=== PATIENT | female | born 1995 | race Two or more races ===

== ENCOUNTER 2022-04-13 15:14 | Outpatient (CLI) | payer SELFPAY | END 2022-04-13 16:43 | disposition home or self-care (01) | LOC: OB 15:14 → UNDODISOB 16:43 → OB 16:43 | PROVIDERS: ATTEND Obstetrics & Gynecology | DX: O36.60X1 Maternal care for excessive fetal growth, unspecified trimester, fetus 1 (principal); Z3A.00 Weeks of gestation of pregnancy not specified | CPT/HCPCS: 76818 ==

== ENCOUNTER 2022-04-24 10:14 | Observation (INO) | payer MEDICAID ==
[~2022-04-24] VITALS: Ht 169 cm; Wt 127.0 kg
== END 2022-04-24 14:21 | disposition home or self-care (01) ==
LOC: LDRP 10:14
PROVIDERS: ADMIT Obstetrics & Gynecology; ATTEND Obstetrics & Gynecology
DX: O62.9 Abnormality of forces of labor, unspecified (principal); O36.8330 Maternal care for abnormalities of the fetal heart rate or rhythm, third trimester, not applicable or unspecified; Z3A.39 39 weeks gestation of pregnancy
CPT/HCPCS: 59025; 76818; 81002; 94760; G0378

== ENCOUNTER 2022-04-26 04:13 | Inpatient (IN) | payer MEDICAID, OTHER ==
[2022-04-24 12:07] LABS: Alcohol, Urine < 3.0 mg/dL (0-10); Amphetamine Screen, Urine NEGATIVE (NEGATIVE); Barbiturate Scree,Urine NEGATIVE (NEGATIVE); Benzodiazephine Screen, Urine NEGATIVE (NEGATIVE); Cannabinoid Screen, Urine NEGATIVE (NEGATIVE); Cocaine Screen, Urine NEGATIVE (NEGATIVE); Opiate Scree,Urine NEGATIVE (NEGATIVE); Phencyclidine Screen, Urine NEGATIVE (NEGATIVE)
[2022-04-24 12:13] LABS: Basophils # (auto) 0 10 ^3/uL (0-0.2); Basophils % (auto) 0.4 % (0.0-2.0); Eosinophils # (auto) 0.1 10 ^3/uL (0-0.8); Eosinophils % (auto) 0.7 % (0.0-7.0); Hematocrit 35.6 % (36.0-46.0); Hemoglobin 11.9 g/dL (12.2-16.2); Lymphocytes # (auto) 1.9 10 ^3/uL (0.4-5.4); Lymphocytes % (auto) 24.2 % (10.0-50.0); Mean Corpuscular Hemoglobin 28.7 pg (28.0-32.0); Mean Corpuscular Hgb Conc. 33.4 g/dL (32.0-36.0); Mean Corpuscular Volume 85.7 fL (80.0-100.0); Monocytes # (auto) 0.4 10 ^3/uL (0-1.3); Monocytes % (auto) 5.6 % (0.0-12.0); Neutrophils # (auto) 5.5 10 ^3/uL (1.6-8.6); Neutrophils % (auto) 69.1 % (37.0-80.0); Nucleated Red Blood Cells % 0.1 %; Red Blood Cells 4.15 10^6/uL (4.0-5.20); White Blood Cell 7.9 10^3/uL (4.4-10.8)
[2022-04-24 12:27] LABS: INR 0.88 (0.9-1.15); Partial Thromboplastin Time 27.9 sec (24.6-33.4)
[2022-04-24 12:31] LABS: Albumin 2.3 g/dL (3.4-5.0); Calcium 8.3 mg/dL (8.5-10.1); Potassium 3.7 mmol/L (3.5-5.1)
[2022-04-24 12:35] LABS: BUN/Creatinine Ratio 9.6; Bilirubin, Total 0.3 mg/dL (0.2-1.0); Total Protein 6.6 g/dL (6.4-8.2)
[2022-04-24 13:19] LABS: Urine Bacteria FEW /hpf (None Seen); Urine Blood Negative /uL (Negative); Urine Mucus FEW (None Seen); Urine Specific Gravity 1.015 (1.001-1.035); Urine WBC 20 /hpf (0 - 5)
[2022-04-26] VITALS (10 sets, daily range): BP systolic 124–139; BP diastolic 72–91
[~2022-04-26] VITALS: Ht 169 cm; Wt 94.8 kg
[2022-04-26] MEDS ORDERED: ceFAZolin 1GM/50ML 50 ML IV ONE (04:30)
[2022-04-26] MEDS ORDERED: SODIUM CITR/CITRIC ACID ORAL SOLN 30 ML PO ONE (04:30)
[2022-04-26] MEDS ORDERED: LACTATED RINGER'S 1,000 ML IV ONE (04:30)
[2022-04-26] MEDS ORDERED: METOCLOPRAMIDE HCL 5MG/ml INJ 2ml VIAL IV ONE (04:30)
[2022-04-26] MEDS ORDERED: PREN-96 PO (05:02)
[2022-04-26] MEDS: LACTATED RINGER'S 1,000 ML IV SCH ×3 (05:56→22:15)
[2022-04-26] MEDS ORDERED: TETRACAINE 1% INJ 2 ML VIAL IJ ONE (07:02)
[2022-04-26] MEDS ORDERED: LACT. RINGERS/OXYTOCIN 20UNITS 1,000 ML IV ONE (07:15)
[2022-04-26] MEDS ORDERED: GUM (CHEWING) 1 GUM CHEW CHEW ONE (07:15)
[2022-04-26] MEDS ORDERED: ONDANSETRON HCL 4 MG/2 ML VIAL IV PRN ×2 (07:15→09:00)
[2022-04-26] MEDS ORDERED: MORPHINE SULF PF 5 MG/10 ML VIAL ONE (07:32)
[2022-04-26] MEDS ORDERED: fentaNYL CITRATE 100 MCG/2 ML VL ONE (07:32)
[2022-04-26] MEDS ORDERED: MIDAZOLAM HCL 2MG/2ML 2ml VIAL (1mg/ml) ONE (07:32)
[2022-04-26] MEDS ORDERED: DOCU-94 PO (07:34)
[2022-04-26] MEDS ORDERED: IBUP800T27 PO (07:34)
[2022-04-26] MEDS ORDERED: HYDR-4902 PO (07:34)
[2022-04-26] MEDS ORDERED: BUPIVACAINE HCL 0.25% P/F 10 ML VIAL ONE (07:58)
[2022-04-26 08:06] LABS: RPR Non Reactive (Non Reactive)
[2022-04-26] MEDS ORDERED: NALOXONE HCL 0.4 MG/ML VIAL IV PRN (09:00)
[2022-04-26] MEDS ORDERED: NALBUPHINE HCL 10 MG/1ml INJECTION SUBCUT ONE (09:00)
[2022-04-26] MEDS ORDERED: diphenhdrAMINE HCL 50 MG/1 ML VL IV PRN (09:00)
[2022-04-26] MEDS ORDERED: DexAMETHasone SOD PHOS 10MG/1ML VIAL INJ IV PRN (09:00)
[2022-04-26] MEDS ORDERED: HYDROmorphone HCL 2 MG/ML VL/or syr IV PRN (09:00)
[2022-04-26] MEDS ORDERED: ePHEDrine SULFATE 50 MG/ML AMP IV PRN (09:00)
[2022-04-26] MEDS ORDERED: LABETALOL HCL 5 MG/ML 4ML SYRINGE IV PRN (09:00)
[2022-04-26] MEDS ORDERED: MIDAZOLAM HCL 2MG/2ML 2ml VIAL (1mg/ml) IV PRN (09:00)
[2022-04-26] MEDS ORDERED: SODIUM CHLORIDE 0.9% 1,000 ML IV SCH (12:30)
[2022-04-26] MEDS: ACETAMINOPHEN IV 1000 MG/100ML (10MG/ML) IV PRN ×2 (12:33→21:16)
[2022-04-26] MEDS ORDERED: PHENYLEPHRINE HCL 10 MG/ML VL IV ONE (12:53)
[2022-04-26] MEDS ORDERED: ceFAZolin 1GM/50ML 50 ML IV SCH (14:00)
[2022-04-26] MEDS: ceFAZolin 1GM/50ML 50 ML IV SCH ×2 (15:31→23:27)
[2022-04-26 22:14] LABS: Basophils # (auto) 0.1 10 ^3/uL (0-0.2); Basophils % (auto) 0.5 % (0.0-2.0); Eosinophils # (auto) 0 10 ^3/uL (0-0.8); Hematocrit 36.6 % (36.0-46.0); Hemoglobin 11.8 g/dL (12.2-16.2); Lymphocytes # (auto) 1.1 10 ^3/uL (0.4-5.4); Lymphocytes % (auto) 7.5 % (10.0-50.0); Mean Corpuscular Hemoglobin 27.9 pg (28.0-32.0); Mean Corpuscular Hgb Conc. 32.1 g/dL (32.0-36.0); Mean Corpuscular Volume 86.8 fL (80.0-100.0); Monocytes # (auto) 0.5 10 ^3/uL (0-1.3); Monocytes % (auto) 3.4 % (0.0-12.0); Neutrophils # (auto) 12.8 10 ^3/uL (1.6-8.6); Neutrophils % (auto) 88.6 % (37.0-80.0); Red Blood Cells 4.22 10^6/uL (4.0-5.20); Red Cell Distribution Width 14.3 % (11.8-14.3); White Blood Cell 14.4 10^3/uL (4.4-10.8)
[2022-04-27] VITALS (12 sets, daily range): BP systolic 113–143; BP diastolic 70–93
[2022-04-27] MEDS: ACETAMINOPHEN IV 1000 MG/100ML (10MG/ML) IV PRN (04:58)
[2022-04-27] MEDS: ceFAZolin 1GM/50ML 50 ML IV SCH (07:00)
[2022-04-27 07:13] LABS: Basophils # (auto) 0 10 ^3/uL (0-0.2); Basophils % (auto) 0.4 % (0.0-2.0); Eosinophils # (auto) 0 10 ^3/uL (0-0.8); Hematocrit 32.8 % (36.0-46.0); Hemoglobin 11.1 g/dL (12.2-16.2); Lymphocytes # (auto) 1.1 10 ^3/uL (0.4-5.4); Lymphocytes % (auto) 9.7 % (10.0-50.0); Mean Corpuscular Hemoglobin 29.3 pg (28.0-32.0); Mean Corpuscular Hgb Conc. 33.8 g/dL (32.0-36.0); Mean Corpuscular Volume 86.7 fL (80.0-100.0); Monocytes # (auto) 0.5 10 ^3/uL (0-1.3); Monocytes % (auto) 4.5 % (0.0-12.0); Neutrophils # (auto) 10.1 10 ^3/uL (1.6-8.6); Neutrophils % (auto) 85.4 % (37.0-80.0); Nucleated Red Blood Cells % 0.1 %; Red Blood Cells 3.78 10^6/uL (4.0-5.20); Red Cell Distribution Width 14.5 % (11.8-14.3); White Blood Cell 11.8 10^3/uL (4.4-10.8)
[2022-04-27] MEDS ORDERED: BISACODYL 10 MG RECT SUPP PR PRN (08:45)
[2022-04-27] MEDS ORDERED: HYDROcodone-ACET 5/325MG TAB PO PRN (08:45)
[2022-04-27] MEDS: DOCUSATE CALCIUM 240 MG CAP PO SCH (09:36)
[2022-04-27] MEDS: DOCUSATE SOD 100 MG CAP PO SCH ×2 (09:36→22:05)
[2022-04-27] MEDS: SIMETHICONE 80 MG CHEWABLE TABLET PO SCH ×3 (11:19→22:04)
[2022-04-27] MEDS: HYDROcodone-ACET 5/325MG TAB PO PRN (15:57)
[2022-04-27] MEDS: PIPERACILLIN-TAZOB 3.375GM 100 ML IV SCH ×2 (16:31→22:05)
[2022-04-28 03:30] VITALS: BP 139/89
[2022-04-28] MEDS: PIPERACILLIN-TAZOB 3.375GM 100 ML IV SCH ×4 (03:57→22:26)
[2022-04-28] MEDS: HYDROcodone-ACET 5/325MG TAB PO PRN ×2 (04:05→16:57)
[2022-04-28] MEDS: SIMETHICONE 80 MG CHEWABLE TABLET PO SCH ×4 (06:00→22:26)
[2022-04-28 07:00] VITALS: BP 120/86
[2022-04-28] MEDS: DOCUSATE CALCIUM 240 MG CAP PO SCH (10:10)
[2022-04-28] MEDS: DOCUSATE SOD 100 MG CAP PO SCH ×2 (10:10→22:25)
[2022-04-28] MEDS: IBUPROFEN 800 MG TAB PO PRN ×2 (10:11→22:58)
[2022-04-28 11:00] VITALS: BP 128/82
[2022-04-28 15:30] VITALS: BP 130/90
[2022-04-28 19:30] VITALS: BP 133/96
[2022-04-28 23:00] VITALS: BP 124/79
[2022-04-29 03:15] VITALS: BP 120/55
[2022-04-29] MEDS: PIPERACILLIN-TAZOB 3.375GM 100 ML IV SCH (04:30)
[2022-04-29 07:30] VITALS: BP 132/97
[2022-04-29] MEDS: HYDROcodone-ACET 5/325MG TAB PO PRN (08:17)
== END 2022-04-29 10:11 | disposition home or self-care (01) | DRG 540 ==
LOC: LDRP 04:13
PROVIDERS: ADMIT Obstetrics & Gynecology Obstetrics; ATTEND Obstetrics & Gynecology
PROC: 10D00Z1 Extraction of Products of Conception, Low, Open Approach (ICD-10-PCS; principal; 2022-04-26 07:33)
DX: O34.211 Maternal care for low transverse scar from previous cesarean delivery (principal); Z37.0 Single live birth; Z3A.39 39 weeks gestation of pregnancy
CPT/HCPCS: 36415; 59025; 80053; 80307; 81001; 81002; 85025; 85610; 85730; 86592; 86850; 86870; 86900; 86901; 94760; 94762; 96360; 96361; G0378; J0131; J0690; J2250; J2543; J3490